=== PATIENT | female | born 1985 | race Caucasian/White ===

== ENCOUNTER 2016-05-11 07:41 | Day surgery (SDC) | payer BC, OTHER ==
[2016-05-10 08:22] VITALS: BMI 26.0
[~2016-05-11] VITALS: Ht 165.1 cm; Wt 71.4 kg
[~2016-05-11 07:41] MED LIST: CEFAZOLIN IV 2,000 MG/60 ML D5W IV SCH; LACTATED RINGER'S 1000ML 1,000 ML IV SCH; MULT-506 PO
[2016-05-11 08:00] VITALS: BP 119/55; PULSE 82; TEMP 36.7; O2SAT 100; Ht 165.1 cm; Wt 71.4 kg
[2016-05-11] MEDS ORDERED: FERR1TAB23 PO ×2 (08:02→10:52)
[2016-05-11] MEDS ORDERED: CEFAZOLIN IV 2,000 MG/60 ML D5W IV ONE (08:20)
--- NOTE | 2016-05-11 08:32 | History and Physical ---
History & Physical Date & Time of Service: May 11, 2016 at 08:29 Chief Complaint: Missed Primary Care Physician: Hollis Alaniz M.D. History of Present Illness Source: patient 30 yo at 14 wks by LMP Incomplete SAB with retained products of conception Failed medical ( Cytotec) termination despite oral and vaginal route usex2 Desires surgical termination, Suction, D&C Understands the risks and signed the consent See my office notes All questions were answered Social History Smoking Status: Never Smoker Alcohol Use: none Drug Use: none Marital Status: Housing status: lives with family Immunizations History of Influenza Vaccine: No History of Tetanus Vaccine?: No Allergies Coded Allergies: Hydrocodone (Verified Allergy, Mild, VOMITTING, 05/11/16) Home Medications Scheduled Ferrous Sulfate (Iron), 325 MG PO BID Multivitamin (Multivitamin), 1 TAB PO QAM Review of Systems Genitourinary - Female: + vaginal discharge (light vaginal bleeding) Physical Exam Vital Signs Date Time Temp Pulse Resp B/P Pulse Ox O2 Delivery O2 Flow Rate FiO2 05/11/16 08:00 36.7 82 18 119/55 100 Room Air General Appearance: WD/WN, no apparent distress Head: normocephalic, atraumatic Eyes: normal inspection, PERRL ENT: normal ENT inspection Neck: supple, no adenopathy, thyroid normal Respiratory/Chest: chest non-tender, lungs clear, normal breath sounds Cardiovascular: regular rate, rhythm Abdomen/GI: normal bowel sounds, non tender, soft, no organomegaly Extremities/Musculoskelatal: normal inspection, no calf tenderness, non-tender Neurologic/Psych: normal mood/affect Skin: normal color, warm/dry, no rash Diagnostics Laboratory Results Results Past 24 Hours Test 05/11/16 08:18 Range/Units Impression Assessment and Plan 30 yo at 14 wks by LMP, incomplete SAB with retained POC Failed medical therapy Desires Suction, D&C
[2016-05-11 08:52] LABS: BASO % 0.6 %; BASO ABS # 0.03 K/uL (0-0.2); COMPLETE YES; EOS % 7.3 %; HEMATOCRIT 25.9 % (37-47); IG% 0.2 %; LYMPH % 28.1 %; LYMPH ABS # 1.34 K/uL (1.2-3.4); MEAN CELL VOLUME 93.8 fL (80-100); MEAN CORPUSCULAR HEMOGLOBIN 33.3 pg (25-34); MEAN CORPUSCULAR HGB CONC 35.5 g/dl (32-36); MEAN PLATELET VOLUME 8.3 fL (7.4-10.4); MONO % 9.9 %; NEUT % 53.9 %; PLATELET COUNT 365 K/uL (130-400); RED BLOOD COUNT 2.76 M/uL (4.2-5.4); WHITE BLOOD COUNT 4.77 K/uL (4.8-10.8)
[2016-05-11] MEDS ORDERED: PROPOFOL IV EMULSION 10 MG/ML 20 ML VIAL IV ONE ×2 (09:35→10:23)
[2016-05-11] MEDS ORDERED: DEXAMETHASONE SOD INJ 4 MG/ML VIAL ONE (09:35)
[2016-05-11] MEDS ORDERED: ONDANSETRON INJ 2 MG/ML 2 ML VIAL ONE (09:35)
[2016-05-11] MEDS ORDERED: LIDOCAINE HCL 2% 2 ML VIAL (20MG/ML) ONE (09:35)
[2016-05-11] MEDS ORDERED: FENTANYL CITRATE INJ 50 MCG/1 ML 2 ML VIAL ONE (09:36)
[2016-05-11] MEDS ORDERED: MIDAZOLAM HCL 1 MG/ML 2ML VIAL ONE (09:36)
[2016-05-11] MEDS ORDERED: FERRIC SUBSULFATE 8 GM VIAL TOP ONE (10:00)
[2016-05-11] MEDS ORDERED: METHYLERGONOVINE MALEATE 0.2 MG/ML AMP ONE (10:14)
[2016-05-11] MEDS ORDERED: METHERGINE IM ONE (10:33)
--- NOTE | 2016-05-11 10:44 | [facility] Post Operative Brief Note ---
Immediate Operative Summary Operative Date May 11, 2016. Pre-Operative Diagnosis Missed Post-Operative Diagnosis Same as pre-operative Procedure(s) Performed Exam under anesthesia and dilation and curettage with suction Surgeon Dr. Busch Managed Services Consultant Surgeon(s) None Estimated Blood Loss 150ml Findings AV 8-10 weeks size uterus MANAGER DEMAND adnexa Specimens A. Products of conception Drains straight cath 200 ml Anesthesia LMA Disposition Recovery Room / PACU
[2016-05-11] MEDS ORDERED: SODIUM CHLORIDE 0.9% 1000ML 1,000 ML IV SCH (10:50)
[2016-05-11] MEDS ORDERED: MTR600X MT (10:52)
--- NOTE | 2016-05-11 10:53 | Discharge Instructions ---
Discharge Instructions Admission Reason for Admission: Missed Discharge Discharge Diagnosis / Problem: Suction, D7C Discharge Goals Goal(s): Routine recovery after surgery Activity Recommendations Activity Limitations: as noted below Lifting Limitations: gradually increase as tolerated Exercise/Sports Limitations: until after follow-up appointment May Resume Sexual Activity: after follow-up appointment Shower/Bathe: no limitations Driving or Machine Use: ACTIVITY RECOMMENDATIONS: * Avoid tampons, douching, hot tubs, pools, and intercourse until bleeding has stopped. * May shower as usual. * No strenuous activity for 24-48 hours. After 24-48 hours, you may do anything you feel like doing (driving and sports are okay). SPECIAL CARE INSTRUCTIONS: Special Diet: * Mild nausea may occur in the immediate post-operative period. * Take clear liquids such as tea, cola or bouillon until all nausea has subsided; you may then resume your normal diet. Special Care: * Light bleeding and vaginal spotting can last from a few days to 3-4 weeks. Call your doctor if bleeding becomes heavier than the heaviest part of your period. * Check your temperature twice a day for one week. If it goes above 100.4 degrees Fahrenheit (38.0 Celsius), notify your doctor. * Call your doctor's office for an appointment for 2 weeks after your surgery. FOLLOW-UP VISIT: Call your doctor's office for an appointment for 6 weeks after your surgery. . Current Hospital Diet Patient's current hospital diet: Discharge Diet Recommended Diet: Regular Diet Procedures Procedures Performed: Exam under anesthesia and dilation and curettage with suction Pending Studies Studies pending at discharge: no Medical Emergencies . Who to Call and When: Medical Emergencies: If at any time you feel your situation is an emergency, please call 911 immediately. . Non-Emergent Contact Non-Emergency issues call your: Surgeon Call Non-Emergent contact if: temperature is above 100.5, your pain is not controlled, your pain is worsening, your pain is concerning you, wound has increased drainage . . "Provider Documentation" section prepared by Opal Busch. VTE Core Measure Inpt VTE Proph given/why not?: Treatment not indicated
[2016-05-11] MEDS ORDERED: LABETALOL HCL IV 5 MG/ML 20ML IV PRN (11:00)
[2016-05-11] MEDS ORDERED: EpHEDrine SULFATE INJ 50 MG/ML AMP IV PRN (11:00)
[2016-05-11] MEDS ORDERED: MoRPHine SULFATE 4 MG/ML 1 ML CARP\\VIAL IV PRN (11:00)
[2016-05-11] MEDS ORDERED: PROMETHAZINE HCL INJ 25 MG in SODIUM CHLORIDE 0.9% 50ML 50 ML IV PRN (11:00)
[2016-05-11] MEDS ORDERED: MoRPHine SULFATE 2 MG/ML CARP IV PRN (11:00)
[2016-05-11] MEDS ORDERED: ATROPINE SULFATE 0.1 MG/ML 5ML SYR IV PRN (11:00)
[2016-05-11] MEDS ORDERED: KETOROLAC TROMETHAMINE 30 MG/ML VIAL IV. PRN (11:00)
[2016-05-11] MEDS ORDERED: IBUPROFEN 600 MG TAB PO PRN (11:00)
[2016-05-11] MEDS ORDERED: HYDROmorphone INJ 1 MG/ML SYR IV PRN (11:00)
[2016-05-11] MEDS ORDERED: MEPERIDINE HCL 25 MG/ML CARP IV PRN (11:00)
[2016-05-11] MEDS ORDERED: ONDANSETRON INJ 2 MG/ML 2 ML VIAL IV PRN ×2 (11:00)
[2016-05-11] MEDS ORDERED: FENTANYL CITRATE INJ 50 MCG/1 ML 2 ML VIAL IV PRN (11:00)
[2016-05-11] MEDS ORDERED: OXYTOCIN INJ 10 UNITS/ML VIAL ONE (11:00)
--- NOTE | 2016-05-11 11:18 | OPERATIVE REPORT ---
DATE OF OPERATION: 05/11/2016 PREOPERATIVE DIAGNOSIS: The patient is a 30-year-old G2, P1-0-0-1 with incomplete spontaneous with retained products of conception, failed medical therapy POSTOPERATIVE DIAGNOSIS: Same. PROCEDURE: Exam under anesthesia, suction dilatation and curettage. SURGEON: Dr. Penn. SURGICAL SCRUB TECHNOLOGIST: OR nurse. ESTIMATED BLOOD LOSS: 150 mL. FLUIDS: 1 liter of lactated ringer. DRAINS: Straight catheter drained 200 mL of clear urine. SPECIMENS: Products of conception and endometrial curettings. FINDINGS: Examination under anesthesia revealed an anteverted 8-10 weeks' size uterus. Palpable adnexa. At the end of the procedure exam was repeated and found anteverted normal size, firm uterus and nonpalpable adnexa. Indications: Patient is a 30 yo at 14 weeks by her last period, She had missed on 04/27 with no cardiac activity and growth. Spontaneously on 04/28, retained products of conception and failed medical therapy by oral and intravaginal Cytotec. The patient desired surgical removal of retained products of conception. Declines further expectant management or medical management. OPERATION AND FINDINGS: PROCEDURE: The patient was taken to the operating room where anesthesia was given without difficulty. She was placed in dorsal lithotomy position and prepared and draped in usual sterile fashion. A timeout was done by myself and the bladder was drained with straight cathete. 200 ml of clear urine was obtained. Then the examination under anesthesia was done with the above findings and gloves were changed and then the weighted speculum was placed in the patient's vagina. Bladder was retracted with Daniel speculum and cervix was visualized, grasped with single tooth tenaculum. Uterus was sounded to be 9 cm. Cervix was dilated with Hanks dilators until # 27. Then #8 plastic suction tip connected to suction machine. It was introduced into the uterine cavity gently and then the suction machine was activated. The suction tip was turned in a clockwise direction while gently removed out from the uterus obtaining small amount of tissue and blood. The suction was repeated 3 times and at the end only small amount of blood coming, no tissues were seen. Then suction was removed. The uterine cavity was curetted with a small sharp curette, producing moderate amount of bloody tissue and uterine cry was felt in the rosen of the uterus as well as fundus. Then suction was repeated again producing moderate amount of blood and no more tissue was seen. The suction was ended. The patient was given 0.2 mg of Methergine IM and 10 units of oxytocin in the IV bag and the bleeding was noted to cease. The tenaculum was removed from patient's vagina and bimanual massage of the uterus was done. Uterus was found to be normal size, anteverted and firm. At the end of the procedure there was no bleeding from the external os neither from the tenaculum site. The procedure was ended. The instruments were removed from patient's vagina. She was cleaned and dried, taken out from lithotomy position. She tolerated the procedure well. Sponge, lap, instrument counts correct x3. She was given 2 grams of cefazolin before surgery. She was taken to recovery room in stable condition. I attest to the content of the Intraoperative Record and any orders documented therein. Any exceptions are noted below. BRANDEE
[2016-05-11 11:28] LABS: HEMATOCRIT 27.4 % (37-47)
[2016-05-11 11:45] VITALS: BP 113/53; PULSE 75; TEMP 36.6; O2SAT 98
[2016-05-11 12:15] VITALS: BP 112/75; PULSE 90; TEMP 36.6; O2SAT 98
--- NOTE | 2016-05-11 12:24 | Anesthesiology Progress Note ---
Anesthesia Post Op Note Date & Time May 11, 2016 at 12:24 Vital Signs Pain Intensity: 3 Vital Signs Past 12 Hours Date Time Temp Pulse Resp B/P Pulse Ox O2 Delivery O2 Flow Rate FiO2 05/11/16 11:35 77 16 111/72 100 Room Air 05/11/16 11:25 71 16 106/82 100 Room Air 05/11/16 11:15 37 77 16 106/82 100 Mask 10 05/11/16 11:05 128 16 106/62 100 Mask 10 05/11/16 10:56 36.8 128 20 111/87 100 Mask 10 05/11/16 08:00 36.7 82 18 119/55 100 Room Air Notes Mental Status: alert / awake / arousable, participated in evaluation Pt Amnestic to Procedure: Yes Nausea / Vomiting: adequately controlled Pain: adequately controlled Airway Patency, RR, SpO2: stable & adequate BP & HR: stable & adequate Hydration State: stable & adequate Anesthetic Complications: no major complications apparent
[2016-05-11 12:45] VITALS: BP 118/61; PULSE 96; TEMP 37; O2SAT 100
== END 2016-05-11 12:57 | disposition home or self-care (01) ==
LOC: C.ACU 07:41
PROVIDERS: ATTEND Obstetrics & Gynecology
DX: O03.4 Incomplete spontaneous abortion without complication (principal)

== ENCOUNTER → 2016-10-30 | Outpatient (CLI) | payer BC ==
[~2016-10-30] MED LIST changes: -CEFAZOLIN IV 2,000 MG/60 ML D5W IV SCH; +FERR1TAB23 PO; -LACTATED RINGER'S 1000ML 1,000 ML IV SCH; +METH0.2T39 PO; +MTR600X MT; +PRENTAB65 PO
[2016-10-30 15:57] LABS: URINE APPEARANCE CLEAR (CLEAR); URINE BILIRUBIN NEG (NEG); URINE COLOR YELLOW; URINE EPITHELIAL CELL AUTO >30 /lpf (0-5); URINE NITRITE NEG (NEG); URINE PH 7.5 (4.5-7.5); UROBILINOGEN NEG (NEG)
[2016-10-30 16:00] LABS: MANUAL MICROSCOPIC REQUIRED? NO; REVIEW REQ? NO
== END | disposition home or self-care (01) ==
LOC: C.PATHSPEC 15:21 → C.LABSPEC 15:33
PROVIDERS: ATTEND Obstetrics & Gynecology
DX: O09.299 Supervision of pregnancy with other poor reproductive or obstetric history, unspecified trimester (principal); Z3A.00 Weeks of gestation of pregnancy not specified

== ENCOUNTER → 2016-11-06 | Outpatient (CLI) | payer BC ==
[2016-11-06 16:59] LABS: BASO % 0.1 %; BASO ABS # 0.01 K/uL (0-0.2); COMPLETE YES; EOS % 1.7 %; HEMATOCRIT 37.7 % (37-47); IG% 0.3 %; LYMPH % 18.9 %; MEAN CORPUSCULAR HEMOGLOBIN 34.2 pg (25-34); MEAN CORPUSCULAR HGB CONC 36.3 g/dl (32-36); MEAN PLATELET VOLUME 10.2 fL (7.4-10.4); MONO % 8.3 %; NEUT % 70.7 %; PLATELET COUNT 281 K/uL (130-400); RED BLOOD COUNT 4.01 M/uL (4.2-5.4); WHITE BLOOD COUNT 10.61 K/uL (4.8-10.8)
[2016-11-09 02:55] LABS: CHLAMYDIA TRACH RNA*** NOT DETECTED (NOT DETECTED); GC (NEIS GONORRHOEAE)RNA** NOT DETECTED (NOT DETECTED)
== END | disposition home or self-care (01) ==
LOC: C.LAB1850 15:45
PROVIDERS: ATTEND Obstetrics & Gynecology
DX: Z34.81 Encounter for supervision of other normal pregnancy, first trimester (principal)

== ENCOUNTER 2016-12-18 10:38 | Emergency (ER) | payer BC ==
[~2016-12-18] VITALS: Ht 165.1 cm; Wt 72.5 kg
[~2016-12-18 10:38] MED LIST changes: -METH0.2T39 PO; -PRENTAB65 PO
[2016-12-18 10:43] VITALS: TEMP 36.9; Ht 165.1 cm; Wt 72.5 kg
[2016-12-18] MEDS ORDERED: SODIUM CHLORIDE 0.9% 1000ML 1,000 ML IV STA (11:43)
[2016-12-18 12:09] VITALS: O2SAT 98
[2016-12-18 12:17] LABS: BASO % 0.1 %; BASO ABS # 0.01 K/uL (0-0.2); COMPLETE YES; EOS % 0.6 %; HEMATOCRIT 38.9 % (37-47); IG% 0.2 %; LYMPH ABS # 1.65 K/uL (1.2-3.4); MEAN CELL VOLUME 94.6 fL (80-100); MEAN CORPUSCULAR HEMOGLOBIN 35.5 pg (25-34); MEAN CORPUSCULAR HGB CONC 37.5 g/dl (32-36); MONO % 6.6 %; NEUT % 75.5 %; PLATELET COUNT 268 K/uL (130-400); RED BLOOD COUNT 4.11 M/uL (4.2-5.4); WHITE BLOOD COUNT 9.71 K/uL (4.8-10.8)
[2016-12-18 12:25] LABS: INR 0.9 (0.9-1.1); PARTIAL THROMBOPLASTIN RATIO 1.1
[2016-12-18] MEDS ORDERED: PRENTAB65 PO (12:34)
[2016-12-18 12:35] LABS: BUN/CREATININE RATIO 8.5 (10-20); CALCIUM 9.2 mg/dl (8.5-10.1); CREATININE 0.71 mg/dl (0.60-1.20); POTASSIUM 3.9 mmol/L (3.5-5.1)
[2016-12-18 12:37] LABS: ALB/GLOB RATIO 1.1 (0.9-2)
[2016-12-18 12:38] LABS: MANUAL MICROSCOPIC REQUIRED? YES; REVIEW REQ? NO; URINE APPEARANCE TURBID (CLEAR); URINE BILIRUBIN NEG (NEG); URINE COLOR RED; URINE NITRITE NEG (NEG); URINE PH 7.5 (4.5-7.5); UROBILINOGEN NEG (NEG)
[2016-12-18 12:39] LABS: SULFASALICYLIC ACID POS (NEG)
[2016-12-18 12:40] LABS: URINE RBC >30 /hpf (0-4)
[2016-12-18 12:41] LABS: URINE BACTERIA NEG (NEG)
--- NOTE | 2016-12-18 14:37 | DIAGNOSTIC IMAGING REPORT ---
TRANSVAGINAL HISTORY: 31 years-old Female vaginal bleeding r/o miscarriage acute vaginal bleeding with . Initial exam. COMPARISON: None available. TECHNIQUE: Multiple real-time sonographic images of the deep pelvic structures were obtained transabdominally and transvaginally assessing grayscale appearance and color Doppler flow. FINDINGS: TRANSABDOMINAL: Endometrium measures 1.7 cm. TRANSVAGINAL: Anteflexed uterus is seen, 11.1 x 5.9 x 5.3 cm. Endometrium measures 2.0 cm and is heterogeneous with areas of increased vascularity. No intrauterine gestational sac or pole identified. Neither ovary is visualized. No significant free pelvic fluid. IMPRESSION: 1. Thickened heterogeneous endometrium with areas of increased vascularity are present without intrauterine gestational sac or pole identified. In the setting of documented , this is suspicious for recent spontaneous with possible retained products of conception. Close evaluation with follow-up pelvic ultrasound and serial quantitative beta hCG analysis is needed. 2. Nonvisualization of the ovaries. The above report was generated using voice recognition software. It may contain grammatical, syntax or spelling errors. Electronically signed by: Kevon Hoff M.D. 12/18/2016 2:36 PM Dictated Date/Time: 12/18/2016 2:31 PM
[2016-12-18] MEDS ORDERED: RHO D IMMUNE GLOBULIN IM SCH (15:00)
[2016-12-18] MEDS ORDERED: [UNRECOGNIZED DRUG - OTHER] IM SCH (15:00)
[2016-12-18] MEDS ORDERED: METH0.2T39 PO (15:40)
--- NOTE | 2016-12-18 15:50 | EMERGENCY ROOM VISIT NOTE ---
History Report prepared by Alexis: Marianela Vee Under the Supervision of: Dr. Blas Kapoor M.D. First contact with patient: 11:32 Chief Complaint: ED VAG BLEEDING Stated Complaint: MISCARRIAGE- BLEEDING,CRAMPING History of Present Illness The patient is a 31 year old female who presents to the Emergency Room with complaints of persistent vaginal bleeding starting this morning. The patient is currently 14 weeks . She woke up this morning with cramping which she thought might be diarrhea. She went to the bathroom and had some brown blood at first. About an hour later, she started bleeding heavily and passing clots. She has been soaking around 2-3 pads an hour. She was feeling well yesterday and had not had any cramping. She denies any back pain, lightheadedness, nausea, vomiting, fever, chills, diarrhea, urinary symptoms, chest pain, or SOB. This is her 3rd . She has had 1 miscarriage. She has a daughter. There were no complications during that . Her blood type is Rh negative. She is not on any medications. Source of History: patient Onset: this morning Position: other (vaginal) Quality: other (bleeding) Timing: other (persistent) Associated Symptoms: + abdominal pain, No fevers, No chills, No chest pain, No SOB, No nausea, No vomiting, No back pain, No diarrhea, No urinary symptoms Note: Pt denies lightheadedness. Review of Systems See HPI for pertinent positives and negatives. A total of ten systems were reviewed and were otherwise negative. Past Medical & Surgical Medical Problems: (1) Miscarriage Family History No pertinent family history stated. Social History Smoking Status: Never Smoker Drug Use: none Marital Status: Current/Historical Medications Scheduled Methylergonovine Maleate (Methergine), 0.2 MG PO Q6H Multivit-Min W/Fe-Fa (), 1 TAB PO DAILY Allergies Coded Allergies: Hydrocodone (Verified Adverse Reaction, Mild, VOMITTING, 12/18/16) Physical Exam Vital Signs Date Time Temp Pulse Resp B/P (MAP) Pulse Ox O2 Delivery O2 Flow Rate FiO2 12/18/16 16:40 72 18 109/63 97 12/18/16 16:15 72 18 109/63 97 Room Air 12/18/16 14:19 76 18 120/48 97 Room Air 12/18/16 12:23 85 12/18/16 12:14 78 18 115/75 98 Room Air 12/18/16 12:09 98 Room Air 12/18/16 11:00 89 18 120/70 96 Room Air 12/18/16 10:43 36.9 132 20 137/80 97 Room Air Physical Exam GENERAL: Awake, alert, well-appearing, in no distress HENT: Normocephalic, atraumatic. Oropharynx unremarkable. EYES: Normal conjunctiva. Sclera non-icteric. NECK: Supple. No nuchal rigidity. FROM. No JVD. RESPIRATORY: Clear to auscultation. CARDIAC: Regular rate, normal rhythm. Extremities warm and well perfused. Pulses equal. ABDOMEN: Soft, non-distended. No tenderness to palpation. No rebound or guarding. No masses. Normal bedside ultrasound with no definite IUP. RECTAL: Deferred. MUSCULOSKELETAL: Chest examination reveals no tenderness. The back is symmetrical on inspection without obvious abnormality. There is no CVA tenderness to palpation. No joint edema. LOWER EXTREMITIES: Calves are equal size bilaterally and non-tender. No edema. No discoloration. NEURO: Normal sensorium. No sensory or motor deficits noted. SKIN: No rash or jaundice noted. Medical Decision & Procedures ER Provider Diagnostic Interpretation: Radiology results as stated below per my review and radiologist interpretation: TRANSVAGINAL HISTORY: 31 years-old Female vaginal bleeding r/o miscarriage acute vaginal bleeding with . Initial exam. COMPARISON: None available. TECHNIQUE: Multiple real-time sonographic images of the deep pelvic structures were obtained transabdominally and transvaginally assessing grayscale appearance and color Doppler flow. FINDINGS: TRANSABDOMINAL: Endometrium measures 1.7 cm. TRANSVAGINAL: Anteflexed uterus is seen, 11.1 x 5.9 x 5.3 cm. Endometrium measures 2.0 cm and is heterogeneous with areas of increased vascularity. No intrauterine gestational sac or pole identified. Neither ovary is visualized. No significant free pelvic fluid. IMPRESSION: 1. Thickened heterogeneous endometrium with areas of increased vascularity are present without intrauterine gestational sac or pole identified. In the setting of documented , this is suspicious for recent spontaneous with possible retained products of conception. Close evaluation with follow-up pelvic ultrasound and serial quantitative beta hCG analysis is needed. 2. Nonvisualization of the ovaries. The above report was generated using voice recognition software. It may contain grammatical, syntax or spelling errors. Electronically signed by: Kevon Hoff M.D. 12/18/2016 2:36 PM Dictated Date/Time: 12/18/2016 2:31 PM Laboratory Results 12/18/16 11:53 Red Blood Count 4.11, Mean Corpuscular Volume 94.6, Mean Corpuscular Hemoglobin 35.5, Mean Corpuscular Hemoglobin Concent 37.5, Mean Platelet Volume 10.0, Neutrophils (%) (Auto) 75.5, Lymphocytes (%) (Auto) 17.0, Monocytes (%) (Auto) 6.6, Eosinophils (%) (Auto) 0.6, Basophils (%) (Auto) 0.1, Neutrophils # (Auto) 7.33, Lymphocytes # (Auto) 1.65, Monocytes # (Auto) 0.64, Eosinophils # (Auto) 0.06, Basophils # (Auto) 0.01 12/18/16 11:53 Test 12/18/16 11:52 12/18/16 11:53 Urine Color RED Urine Appearance TURBID (CLEAR) Urine pH 7.5 (4.5-7.5) Urine Specific Mcgraws 1.020 (1.000-1.030) Urine Protein 3+ (NEG) Urine Glucose (UA) NEG (NEG) Urine Ketones NEG (NEG) Urine Occult Blood 3+ (NEG) Urine Nitrite NEG (NEG) Urine Bilirubin NEG (NEG) Urine Urobilinogen NEG (NEG) Urine Leukocyte Esterase SMALL (NEG) Urine RBC >30 /hpf (0-4) Urine WBC 10-30 /hpf (0-5) Urine Epithelial Cells >30 /lpf (0-5) Urine Bacteria NEG (NEG) White Blood Count 9.71 K/uL (4.8-10.8) Red Blood Count 4.11 M/uL (4.2-5.4) Hemoglobin 14.6 g/dL (12.0-16.0) Hematocrit 38.9 % (37-47) Mean Corpuscular Volume 94.6 fL (80-100) Mean Corpuscular Hemoglobin 35.5 pg (25-34) Mean Corpuscular Hemoglobin Concent 37.5 g/dl (32-36) Platelet Count 268 K/uL (130-400) Mean Platelet Volume 10.0 fL (7.4-10.4) Neutrophils (%) (Auto) 75.5 % Lymphocytes (%) (Auto) 17.0 % Monocytes (%) (Auto) 6.6 % Eosinophils (%) (Auto) 0.6 % Basophils (%) (Auto) 0.1 % Neutrophils # (Auto) 7.33 K/uL (1.4-6.5) Lymphocytes # (Auto) 1.65 K/uL (1.2-3.4) Monocytes # (Auto) 0.64 K/uL (0.11-0.59) Eosinophils # (Auto) 0.06 K/uL (0-0.5) Basophils # (Auto) 0.01 K/uL (0-0.2) RDW Standard Deviation 41.9 fL (36.4-46.3) RDW Coefficient of Variation 12.2 % (11.5-14.5) Immature Granulocyte % (Auto) 0.2 % Immature Granulocyte # (Auto) 0.02 K/uL (0.00-0.02) Prothrombin Time 10.0 SECONDS (9.0-12.0) Prothromb Time International Ratio 0.9 (0.9-1.1) Activated Partial Thromboplast Time 27.3 SECONDS (21.0-31.0) Partial Thromboplastin Ratio 1.1 Anion Gap 8.0 mmol/L (3-11) Est Creatinine Clear Calc Drug Dose 112.4 ml/min Estimated GFR () 129.7 Estimated GFR (Non- 111.9 BUN/Creatinine Ratio 8.5 (10-20) Calcium Level 9.2 mg/dl (8.5-10.1) Total Bilirubin 0.3 mg/dl (0.2-1) Aspartate Amino Transf (AST/SGOT) 17 U/L (15-37) Alanine Aminotransferase (ALT/SGPT) 24 U/L (12-78) Alkaline Phosphatase 82 U/L (45-117) Total Protein 7.0 gm/dl (6.4-8.2) Albumin 3.6 gm/dl (3.4-5.0) Globulin 3.4 gm/dl (2.5-4.0) Albumin/Globulin Ratio 1.1 (0.9-2) Human Chorionic Gonadotropin, Quant 613 mIU/mL Laboratory results reviewed by me Medications Administered Medications (Trade) Dose Ordered Sig/Hetal Route Start Time Stop Time Status Last Admin Dose Admin Sodium Chloride 1,000 ml @ 999 mls/hr Q1H1M STAT IV 12/18/16 11:43 12/18/16 12:43 DC 12/18/16 11:43 999 MLS/HR Immune Globulin (Winrho Sdf Liquid) 1,500 inter.unit TODAY@1500 IM 12/18/16 15:00 12/18/16 17:18 DC 12/18/16 15:40 1,500 INTER.UNIT ED Course 1134: The patient was evaluated in room C8. A complete history and physical exam was performed. 1143: NSS 1000 ml @ 999 mls/hr IV. 1457: I reevaluated the patient. I discussed the results with her and updated her on the plan. 1458: I discussed the patient's case with Dr. Hinojosa [facility] [place] Cloud Physicist. She will come to evaluate the patient. 1500: Winrho Sdf IM. 1528: Dr. Hinojosa has evaluated the patient. She feels the patient is stable for discharge. She recommends discharge with 3 doses of Methergine. Medical Decision I reviewed the patient's past medical history, medications, and the nursing notes as described above. Differential diagnosis: miscarriage, UTI, pyelonephritis. Patient is a 31-year-old woman who presents to the emergency department with vaginal bleeding with passage of clots and abdominal cramping since this morning in the setting of being 14 weeks per history of present illness. Patient reports having 2-3 saturated pads per hour. On arrival the patient is in no acute distress, afebrile with stable vital signs. Bedside transabdominal ultrasound to get it for IUP but with heterogenous intrauterine findings concerning for retained products. Formal transvaginal ultrasound also negative for IUP and with question of retained products. Otherwise patient labs are unremarkable. The patient is Rh negative and thus was given rhogam. I reviewed and reevaluate the patient denies any complaints. Patient was declining my pelvic exam and requesting evaluation and D&E by her MD diabetes clinical manager, Dr. Hinojosa, who is on-call today. I explained to the patient that it is important that we evaluate the extent of her current bleeding and patient said that she would be agreeable to have her diabetes clinical manager perform the exam. Case was discussed with the patient's diabetes clinical manager, Dr. Hinojosa, who evaluated the patient at the bedside. Vaginal bleeding was subsiding per her exam. Agrees with Rhogam. Given the patient's report of significant bleeding ITALIAN TEACHER, will write a prescription for Methergine. Otherwise the patient be scheduled be seen next week for reevaluation and repeat quantitative hCG. D/c 'd per [facility]ci. Medication Reconcilliation Current Medication List: was personally reviewed by me Blood Pressure Screening Patient's blood pressure: Normal blood pressure Blood pressure disposition: Did not require urgent referral Consults Time Called: [phone] Consulting Physician: Dr. Hinojosa [facility] [place] Cloud Physicist Returned Call: [phone] I discussed the patient's case with her. She will come to evaluate the patient. Impression Primary Impression: Incomplete miscarriage Scribe Attestation The scribe's documentation has been prepared under my direction and personally reviewed by me in its entirety. I confirm that the note above accurately reflects all work, treatment, procedures, and medical decision making performed by me. Departure Information Dispostion Home / Self-Care Prescriptions Methylergonovine Maleate (METHERGINE) 0.2 Mg Tab 0.2 MG PO Q6H, #3 Prov: Adore Hinojosa MD 12/18/16 Referrals Hollis Alaniz M.D. (PCP) Adore Hinojosa MD Patient Instructions ED Miscarriage Incom, [facility] Additional Instructions Please follow up with your diabetes clinical manager, Dr. Hinojosa, next week for re- evaluation and repeat lab test as arranged. You had a miscarriage. Otherwise, your exam, ultrasound and lab results did not show signs of an emergent condition at this time. Take Methergine as prescribed by Dr. Hinojosa. Return to the emergency department for worsening symptoms as described in the accompanying instructions.
[2016-12-18 16:40] VITALS: BP 109/63; PULSE 72; O2SAT 97
--- NOTE | 2016-12-18 22:53 | GYNECOLOGICAL CONSULTATION ---
DATE OF CONSULTATION: 12/18/2016 LOCATION: ER. BED: C8. CHIEF COMPLAINT: Vaginal bleeding. HISTORY OF PRESENT ILLNESS: This is a 31-year-old G3, P1-0-1-1, currently at 14 weeks and 2/7 gestational age based on LMP consistent with first trimester ultrasound performed in our office. The patient has established with us for care and has had both an 8 week and a 12 week visit. The patient was in her usual state of health until she awoke this morning at which point she felt cramps that she describes as being like needing to have diarrhea. She went to the bathroom initially nothing occurred so she went back to bed. On her second trip to the bathroom, she began noticing passage of a large amount of clear to slightly brownish foul smelling fluid followed by the onset of heavy bleeding and passage of tissue including recognizable tissue. The patient was aware that this was a miscarriage. She contacted her friend, Marifer Scruggsluke who is the PA in our office, and asked her what to do and she was told to rest and observe. She began to bleed even heavier filling 2-3 pads in 1 hour, at which point she became afraid and came to the Emergency Room. I was notified of her presence here by Dr. Kapoor after an ultrasound had been obtained. He stated that the patient had declined a physical exam including pelvic exam from himself and I was asked to see the patient. I did review the patient's ultrasound images myself as well as the report. The images show what appears to be appropriately contracted 11 cm uterus with a defined endometrial stripe. There is no evidence of gestational sac nor obvious retained tissue. I then presented to see the patient in the Emergency Department. When I met the patient, she repeated to me the story she had told to Dr. Kapoor above and was agreeable to further exam including physical by myself. PAST MEDICAL HISTORY: Notable for varicella in childhood. PAST SURGICAL HISTORY: D&E in April 2016 for a 12-week missed . SOCIAL HISTORY: This is a female, nonsmoker, nondrinker, nonuser of drugs. FAMILY HISTORY: Noncontributory. OBSTETRIC HISTORY: Notable for a 39-week vaginal delivery of a 7 pound 1 ounce term in 2011 and a 12-week missed AB in 2016 followed by the current . ALLERGIES: INCLUDE VICODIN, WHICH CAUSES VOMITING. CURRENT MEDICATIONS: Include Vitamin Adult Gummies. LABORATORY VALUES: Reviewed and show a blood type of AB negative, rubella immune status. The patient's current CBC is also reviewed and shows that her white count today is 9.7. Her hemoglobin is 14.6 and her platelets are 268. IMAGING DATA: As mentioned above was reviewed. A transvaginal ultrasound done at 2:30 p.m. today shows a uterus which is approximately 11 cm in height with an endometrial stripe that is well defined with a maximum of approximately 2 cm in thickness. There is no gestational sac nor obvious tissue remaining present in the uterus. PHYSICAL EXAMINATION: VITAL SIGNS: On physical exam, the patient's vital signs are noted be on continuous monitoring in the exam room. Her pulse was normal. Her blood pressure was 115-137/70-80. Her pulse ox was 96-98 on room air. Her temperature was 36.9. GENERAL: The patient was alert and in no acute distress, although appropriately tearful and emotional about the loss of her very much desired . LUNGS: She had a normal respiration rate and nonlabored breathing. ABDOMEN: Soft, nontender. She did permit a pelvic exam which revealed a cervix that was closed with an external os that was barely able to admit a fingertip and the cervical canal did not admit the finger any further. The uterus was firm at 10-11 cm in size. There was moderate, menstrual-like bright red vaginal bleeding with a 3" area on the chux below her that was blood stained. There were no clots in the vault and none expressible on bimanual. A/P: Completed spontaneous at 14+ weeks. At this point the patient is clinically stable with appropriate decrease in bleeding rate, excellent Hgb level, normal vitals. She should have a quant today and followed weekly to zero. Her blood type is Rh neg and she will receive RhoGAM here in ER. She can then be discharged to outpatient follow up. The patient is anxious about heavy bleeding due to retained tissue after her previous 12-week loss, and asking about whether we would do a D&E now to make sure she stops bleeding as soon as possible. We discussed that as there is no sac in the uterus I do not have indication for the D&E procedure, which would be more risk than is currently warranted, but I agreed to send her home with methergine PO x3 doses to ezio her bleeding more quickly. She is agreeable to this. DICTATION ENDS HERE. MTDD
== END 2016-12-18 16:40 | disposition home or self-care (01) ==
LOC: C.EDB 10:39 → C.EDC 16:40
DX: O03.9 Complete or unspecified spontaneous abortion without complication (principal)

== ENCOUNTER → 2016-12-25 | Outpatient (CLI) | payer BC ==
[~2016-12-25] MED LIST changes: -FERR1TAB23 PO; +METH0.2T39 PO; -MTR600X MT; -MULT-506 PO; +PRENTAB65 PO
== END | disposition home or self-care (01) ==
LOC: C.LAB1850 16:20
PROVIDERS: ATTEND Obstetrics & Gynecology
DX: O03.9 Complete or unspecified spontaneous abortion without complication (principal)

== ENCOUNTER → 2017-01-01 | Outpatient (CLI) | payer BC | END | disposition home or self-care (01) | LOC: C.LAB1850 09:12 | PROVIDERS: ATTEND Obstetrics & Gynecology | DX: O03.9 Complete or unspecified spontaneous abortion without complication (principal) ==

== ENCOUNTER → 2017-07-04 | Outpatient (CLI) | payer OTHER ==
--- NOTE | 2017-07-05 07:57 | MAMMOGRAPHY REPORT ---
UNILATERAL LEFT DIGITAL DIAGNOSTIC MAMMOGRAM TOMOSYNTHESIS WITH CAD AND TARGETED LEFT ULTRASOUND: 06/24 CLINICAL HISTORY: 31-year-old woman who presents after she felt a lump in the left upper outer breast approximately 2 weeks ago. She reports it is approximately the size of a quarter. No skin erythema or thickening. No nipple discharge. Family history of breast cancer = maternal grandmother diagnos ed at age 78. TECHNIQUE: Left breast tomosynthesis in addition to standard 2D mammography was performed. Current st udy was also evaluated with a Computer Aided Detection (CAD) system. COMPARISON: No prior exams were available for comparison. BREAST COMPOSITION: The tissue of the left breast is heterogeneously dense, which may obscure small masses. FINDINGS: There is a triangular palpable marker overlying the upper outer middle to posterior left br east, denoting the palpable lump identified by the patient. No obvious mass, asymmetry, architectura l distortion or cluster of microcalcifications is seen. Targeted ultrasound was performed in the area lump pointed out by the patient, in the left breast 2:0 0 axis, 9 cm from the nipple. On palpation, there is quarter sized area of nodular breast tissue. O n ultrasound, there is sonographically normal tissue without a suspicious solid or cystic mass. IMPRESSION: ACR BI-RADS CATEGORY 2: BENIGN, TARGETED ULTRASOUND ACR BI-RADS CATEGORY 2: BENIGN There is no suspicious mammographic or sonographic abnormality in the 2:00 left breast in the area of lumpiness pointed out by the patient. Overall, no mammographic or targeted sonographic evidence of malignancy. Continued clinical monitoring and follow-up is recommended, as biopsy of a clinically bullard spicious mass should not be precluded by negative imaging. These results and recommendations were discussed with the patient at the time of the exam. Approximately 10% of breast cancers are not detected with mammography. A negative mammographic report should not delay biopsy if a clinically suggestive mass is present. Marifer Ingram M.D. ay/:07/04/2017 10:32:14 Adult Education Professional: Hieu DUFFY)([place]), [facility] letter sent: Normal /2 BI-RADS Code: ACR BI-RADS Category 2: Benign Ultrasound BI-RADS: ACR BI-RADS Category 2: Benign
== END | disposition home or self-care (01) ==
LOC: C.MAMM 09:56
PROVIDERS: ATTEND Obstetrics & Gynecology
DX: N63.21 Unspecified lump in the left breast, upper outer quadrant (principal)